=== PATIENT | male | born 1960 | race Caucasian/White ===

== ENCOUNTER 2019-10-28 12:55 | Outpatient (CLI) | payer BC, SELFPAY ==
--- NOTE | ~2019-10-28 | XR_ITS ---
EXAMINATION: XR lg joint inject/asp w image DATE: 10/28/2019 13:40 INDICATION: Right hip pain. TECHNIQUE: A time-out was performed to verify the patient's name, date of , and procedure to b e performed. The procedure including the risks, benefits, and alternatives was discussed with the pat ient. Risks discussed included bleeding and infection. The patient understood the risks and agreed to proceed. The skin overlying the right hip joint was prepped and draped in usual sterile fashion. A nesthetic was administered with 1% lidocaine subcutaneously. A 22 G needle was advanced under fluoro scopic guidance into the joint. Injection of 1 mL of Omnipaque 240 confirmed intra-articular positio n of the needle. Subsequently, injectate consisting of 5 mL 1% lidocaine and 2 mL 10 mg/mL Kenalog w as instilled. The needle was removed and the entry site was cleaned and dressed. There were no imme diate complications. Fluoroscopy exposure time was 0.1 minutes. The total number of images was 2. FINDINGS: Real-time fluoroscopy demonstrates the needle in the right hip joint. Patient's pain prior to procedure:6/10. Patient's pain following the procedure: 0/10. IMPRESSION: 1. Right hip joint injection of local anesthetic and steroid with decrease in the patient's presentin g pain. Reviewed, dictated and finalized at location A. IMPRESSION: 1. Right hip joint injection of local anesthetic and steroid with decrease in t he patient's presenting pain.
== END 2019-10-28 12:56 | disposition home or self-care (01) ==
PROVIDERS: PCP Family Medicine; Visit Provider Orthopaedic Surgery
DX: M25.551 Pain in right hip (principal)
CPT/HCPCS: 20610; 77002; J3301; Q9966

== ENCOUNTER 2020-02-05 00:56 | Outpatient (CLI) | payer BC, SELFPAY ==
[2020-02-05 19:18] LABS: SARS-CoV-2 RNA PCR Negative
== END 2020-02-05 00:57 | disposition home or self-care (01) ==
LOC: ANHCOVIDDT 00:56
PROVIDERS: PCP Family Medicine; Visit Provider Internal Medicine Gastroenterology
DX: Z01.812 Encounter for preprocedural laboratory examination (principal); Z20.828 Contact with and (suspected) exposure to other viral communicable diseases
CPT/HCPCS: 87635; C9803; U0003

== ENCOUNTER 2020-02-08 01:50 | Day surgery (SDC) | payer BC, SELFPAY ==
[2020-02-01 10:06] VITALS: BMI 30.7
[2020-02-08 06:52] VITALS: BP 131/80; PULSE 61; RESP 16; TEMP 36.3; O2SAT 99
[2020-02-08] MEDS: LACTATED RINGERS 1,000 ML 150 ML IV CONT (07:02)
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
[2020-02-08 08:29] VITALS: BP 100/64; PULSE 59; RESP 16; O2SAT 100
[2020-02-08 08:34] VITALS: BP 122/76; PULSE 62; RESP 18; O2SAT 100
[2020-02-08 08:50] VITALS: BP 115/76; PULSE 51; RESP 18; O2SAT 100
== END 2020-02-08 08:57 | disposition home or self-care (01) ==
PROVIDERS: PCP Family Medicine; Visit Provider Internal Medicine Gastroenterology
PROC: 0DJD8ZZ Inspection of Lower Intestinal Tract, Via Natural or Artificial Opening Endoscopic (ICD-10-PCS; CPT 45378; principal; 2020-02-08 08:00)
DX: K51.00 Ulcerative (chronic) pancolitis without complications (principal); K64.8 Other hemorrhoids; I10 Essential (primary) hypertension; K21.9 Gastro-esophageal reflux disease without esophagitis; Z87.891 Personal history of nicotine dependence
CPT/HCPCS: 45380; 88305; J2704; J7120

== ENCOUNTER 2021-01-16 10:54 | Outpatient (CLI) | payer BC, SELFPAY ==
--- NOTE | ~2021-01-16 | XR_ITS ---
EXAMINATION: XR lg joint inject/asp w image DATE: 01/16/2021 11:35 INDICATION: Unilateral primary osteoarthritis of the right hip TECHNIQUE: A time-out was performed to verify the patient's name, date of , and procedure to b e performed. The procedure including the risks, benefits, and alternatives was discussed with the pat ient. Risks discussed included bleeding and infection. The patient understood the risks and agreed to proceed. The skin overlying the right hip joint was prepped and draped in usual sterile fashion. A nesthetic was administered with 1% lidocaine subcutaneously. A 22 G needle was advanced under fluoro scopic guidance into the joint. Injection of 1 mL of Omnipaque 240 confirmed intra-articular positio n of the needle. Subsequently, injectate consisting of 7 mm a 5:2 mixture of 1% lidocaine: 10 mg/mL Kenalog for a total dosage of 20 mg Kenalog was instilled. Washout of contrast was seen confirming in tra-articular administration. The needle was removed and the entry site was cleaned and dressed. The re were no immediate complications. Fluoroscopy exposure time was 0.1 minutes. The total number of im ages was 2. Total DAP was 0.618 mGycm^2 FINDINGS: Real-time fluoroscopy demonstrates the needle in the right hip joint. Patient's pain prior to procedure:11/24. Patient's pain following the procedure: 09/24. IMPRESSION: 1. Right hip injection of local anesthetic and steroid with decrease in the patient's presenting pain . Reviewed, dictated and finalized at location A. IMPRESSION: 1. Right hip injection of local anesthetic and steroid with decrease in the pat ient's presenting pain.
== END 2021-01-16 10:55 | disposition home or self-care (01) ==
PROVIDERS: PCP Family Medicine; Visit Provider Orthopaedic Surgery
DX: M16.11 Unilateral primary osteoarthritis, right hip (principal)
CPT/HCPCS: 20610; 77002; J3301; Q9966

== ENCOUNTER 2021-10-31 08:48 | Emergency (ER) | payer BC, SELFPAY ==
--- NOTE | ~2021-10-31 | CT_ITS ---
EXAMINATION: CT abdomen pelvis wo con DATE: 10/31/2021 10:49 INDICATION: Right groin pain. TECHNIQUE: Computed tomography (CT) of the abdomen and pelvis was performed without intravenous contr ast. Automated exposure control and iterative reconstruction technique were employed. The dose-length product was 1170.68 mGy-cm. COMPARISON: Chest CT 02/05/2011 FINDINGS: The visualized portions of the lung bases demonstrate minimal atelectasis. No pleural effus ion. The heart size is normal. No pericardial effusion. The liver, gallbladder, spleen, pancreas, and adrenal glands are normal. There is a 3 mm stone in right kidney. There are cysts in the kidneys estephania suring up to 2.5 cm on the left. There is prominent fat in the inguinal canals that may be hernias. T here is diverticulosis of the colon without evidence of diverticulitis. The appendix is normal. There are no pathologically enlarged lymph nodes. There is no free intraperitoneal fluid. There is a total right hip arthroplasty. There are changes of anterior and posterior fusion procedures from L4 to S1. There is moderate lumbar spondylosis and mild thoracic spondylosis. IMPRESSION: 1. Prominent fat in the inguinal canals that may be small hernias. 2. Small nonobstructing right kidney stone. Reviewed, dictated and finalized at location B.
[2021-10-31 08:56] VITALS: BP 186/103; PULSE 77; RESP 18; TEMP 36.1; O2SAT 100
[2021-10-31 09:11] LABS: Basophils Absolute Auto 0.1 K/mm3 (0.0-0.1); Basophils Percent Auto 1.4 % (0.2-1.2); Eosinophils Absolute Auto 0.1 K/mm3 (0-0.3); Eosinophils Percent Auto 1.8 % (0-4.4); Hematocrit 43.7 % (42.0-52.0); Hemoglobin 14.9 g/dL (14.0-18.0); Immature Granulocyte Absolute 0.02 K/mm3 (0.00-0.031); Immature Granulocyte Percent A 0.4 % (0-0.5); Lymphocytes Absolute Auto 1.64 K/mm3 (0.9-3.2); Lymphocytes Percent Auto 29.3 % (18.3-44.2); Mean Corpuscular HGB Conc 34.1 g/dl (32-36); Mean Corpuscular Hemoglobin 30.9 pg (26-34); Mean Corpuscular Volume 90.7 fl (80-100); Mean Platelet Volume 9.5 fl (7.4-10.4); Monocytes Absolute Auto 0.5 K/mm3 (0.1-0.6); Neutrophils Absolute Auto 3.3 K/mm3 (1.3-6.7); Neutrophils Percent Auto 59.1 % (45.5-73.1); Platelet Count Result 236 k/mm3 (150-375); Red Blood Count 4.82 M/mm3 (4.6-6.20); Red Cell Distribution Width 13.7 % (11.5-14.5); White Blood Count 5.6 K/mm3 (4.5-10.0)
[2021-10-31 09:23] LABS: Alanine Aminotransferase 20 U/L (6-50); Albumin Level 4.6 g/dL (3.5-5.1); Alkaline Phosphatase 68 U/L (38-126); Anion Gap 6 mmol/L (8-16); Aspartate Amino Transferase 25 U/L (17-59); Bilirubin,Total 0.7 mg/dL (0.2-1.3); Blood Urea Nitrogen 13 mg/dL (9-20); Calcium 9.4 mg/dL (8.4-10.2); Carbon Dioxide 26 mmol/L (22-30); Chloride 104 mmol/L (98-107); Estimated CRCL calculation 99 ml/min; Estimated Glomerular Filt Rate > 60; Glucose 120 mg/dL (65-110); Potassium 4.7 mmol/L (3.4-5.0); Sodium 136 mmol/L (137-145)
[2021-10-31 10:20] LABS: Appearance Urine Clear (Clear); Bilirubin Urine Negative (Negative); Blood Urine Negative (Negative); Color Urine Yellow (Yellow); Glucose Urine UA Negative (Negative); Ketones Urine Negative (Negative); Leukocyte Esterase Ur Negative LEU/UL (Negative); Nitrate Urine Negative (Negative); Protein Urine Negative (Negative); Specific Grav Ur 1.025 (1.001-1.035); Urobilinogen Urine 0.2 mg/dL (<2.0)
[2021-10-31 10:21] LABS: Add Urine Microscopic? NO
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
== END 2021-10-31 11:40 | disposition home or self-care (01) ==
PROVIDERS: Emergency Provider Emergency Medicine; PCP Family Medicine
DX: K40.90 Unilateral inguinal hernia, without obstruction or gangrene, not specified as recurrent (principal); I10 Essential (primary) hypertension; F17.210 Nicotine dependence, cigarettes, uncomplicated
CPT/HCPCS: 36415; 74176; 80053; 81003; 85025; 99283

== ENCOUNTER 2023-01-31 00:30 | Day surgery (SDC) | payer BC, SELFPAY ==
[2023-01-16 13:35] VITALS: BMI 30.4
[2023-01-31 09:46] VITALS: BP 145/90; PULSE 62; RESP 16; TEMP 36.2; O2SAT 99; BMI 29.5
[2023-01-31] MEDS: LACTATED RINGERS 1,000 ML 150 ML IV CONT (09:58)
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
[2023-01-31 10:26] VITALS: BP 101/57; PULSE 71; RESP 20; O2SAT 95
[2023-01-31 10:36] VITALS: BP 110/69; PULSE 63; RESP 21; O2SAT 99
[2023-01-31 10:46] VITALS: BP 121/83; PULSE 71; RESP 20; O2SAT 99
== END 2023-01-31 10:58 | disposition home or self-care (01) ==
PROVIDERS: PCP Family Medicine; Visit Provider Internal Medicine Gastroenterology
PROC: 0DJD8ZZ Inspection of Lower Intestinal Tract, Via Natural or Artificial Opening Endoscopic (ICD-10-PCS; CPT 45378; principal; 2023-01-31 11:00)
DX: Z12.11 Encounter for screening for malignant neoplasm of colon (principal); D12.5 Benign neoplasm of sigmoid colon; K64.8 Other hemorrhoids; K51.90 Ulcerative colitis, unspecified, without complications; I10 Essential (primary) hypertension; Z87.891 Personal history of nicotine dependence
CPT/HCPCS: 45385; 45380; 88305; J2704; J7120

== ENCOUNTER 2024-01-01 00:24 | Day surgery (SDC) | payer BC, SELFPAY ==
[2024-01-01 14:09] VITALS: BP 147/85; PULSE 67; RESP 18; TEMP 35.9; O2SAT 98; BMI 32.3
[2024-01-01] MEDS: LACTATED RINGERS 1,000 ML 150 ML IV CONT (14:17)
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
[2024-01-01 15:35] VITALS: BP 123/69; PULSE 70; RESP 22; O2SAT 99
[2024-01-01 15:45] VITALS: BP 126/78; PULSE 66; RESP 19; O2SAT 99
[2024-01-01 15:55] VITALS: BP 131/76; PULSE 65; RESP 18; O2SAT 98
== END 2024-01-01 16:01 | disposition home or self-care (01) ==
PROVIDERS: PCP Family Medicine; Referring Provider Nurse Practitioner Family; Visit Provider Internal Medicine Gastroenterology
PROC: 0DJ08ZZ Inspection of Upper Intestinal Tract, Via Natural or Artificial Opening Endoscopic (ICD-10-PCS; CPT 43235; principal; 2024-01-01 15:00)
DX: K21.00 Gastro-esophageal reflux disease with esophagitis, without bleeding (principal); K22.70 Barrett's esophagus without dysplasia; K22.2 Esophageal obstruction; K44.9 Diaphragmatic hernia without obstruction or gangrene; K31.89 Other diseases of stomach and duodenum; I10 Essential (primary) hypertension; M16.11 Unilateral primary osteoarthritis, right hip; M17.11 Unilateral primary osteoarthritis, right knee; E66.9 Obesity, unspecified; Z68.32 Body mass index [BMI] 32.0-32.9, adult; Z79.1 Long term (current) use of non-steroidal anti-inflammatories (NSAID); Z98.890 Other specified postprocedural states; Z98.1 Arthrodesis status; Z87.891 Personal history of nicotine dependence; Z86.010 Personal history of colon polyps; Z80.9 Family history of malignant neoplasm, unspecified
CPT/HCPCS: 43249; 88305; C1726; J2704; J7120

== ENCOUNTER 2024-05-27 01:27 | Day surgery (SDC) | payer BC, SELFPAY ==
[2024-04-23 10:51] VITALS: BMI 33.0
[2024-05-13 12:54] VITALS: BMI 33.0
[2024-05-27 13:10] VITALS: BP 154/100; PULSE 78; RESP 14; TEMP 36; O2SAT 99
[2024-05-27] MEDS: LACTATED RINGERS 1,000 ML 150 ML IV CONT (13:21)
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
[2024-05-27 14:24] VITALS: BP 131/84; PULSE 76; RESP 25; O2SAT 98
[2024-05-27 14:34] VITALS: BP 126/73; PULSE 65; RESP 20; O2SAT 100
[2024-05-27 14:44] VITALS: BP 141/77; PULSE 74; RESP 24; O2SAT 100
== END 2024-05-27 14:52 | disposition home or self-care (01) ==
PROVIDERS: PCP Family Medicine; Visit Provider Internal Medicine Gastroenterology
PROC: 0DJD8ZZ Inspection of Lower Intestinal Tract, Via Natural or Artificial Opening Endoscopic (ICD-10-PCS; CPT 45378; principal; 2024-05-27 14:00)
DX: Z09 Encounter for follow-up examination after completed treatment for conditions other than malignant neoplasm (principal); K51.90 Ulcerative colitis, unspecified, without complications; K63.5 Polyp of colon; D12.8 Benign neoplasm of rectum; K64.8 Other hemorrhoids; K57.30 Diverticulosis of large intestine without perforation or abscess without bleeding; K22.2 Esophageal obstruction; I10 Essential (primary) hypertension; M17.11 Unilateral primary osteoarthritis, right knee; M16.11 Unilateral primary osteoarthritis, right hip; F12.90 Cannabis use, unspecified, uncomplicated; E66.9 Obesity, unspecified; Z68.32 Body mass index [BMI] 32.0-32.9, adult; Z79.1 Long term (current) use of non-steroidal anti-inflammatories (NSAID); Z98.890 Other specified postprocedural states; Z98.1 Arthrodesis status; Z86.0100 Personal history of colon polyps, unspecified; Z87.891 Personal history of nicotine dependence; Z87.19 Personal history of other diseases of the digestive system; Z80.9 Family history of malignant neoplasm, unspecified
CPT/HCPCS: 45385; 45380; 88305; J2003; J2704; J7120

== ENCOUNTER 2025-01-20 03:57 | Day surgery (SDC) | payer MEDICARE, SELFPAY ==
[2025-01-13 12:03] VITALS: BMI 34.3
--- OUTSIDE RECORDS SUMMARY | 2025-01-20 04:26 | XMS_ITS | Clinical Summary ---
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
--- OUTSIDE RECORDS SUMMARY | 2025-01-20 04:26 | XMS_ITS | Clinical Summary ---
Author Organization [facility] Address [address] [place] [address] Care Team Providers Care Rn Field Case Manager Name Role Phone Glen Daniels MD Primary Care Provider [phone] Source Comments [facility],non-owned Affiliates and Associated Physician Practices is amultiple site organization consisting of ambulatory clinics and hospital sitesin [place], [place], [place] and [place]. This disclosure is being madepursuant to the Care Everywhere program and may not contain all information available regarding this patient. Last updated 18.[facility] Allergies No known active allergies Medications * Be aware that medications may not be up to date on this document. Alwaysverify current medications with the patient. influenza quadrivalent vac (FLUZONE QUAD) 0.5 ML injection 8 Active Calcium Citrate-Vitamin D (CITRACAL MAXIMUM PO) Take 1 tablet by mouth once daily Active sulfaSALAzine (AZULFIDINE) 500 MG tablet Take 500 mg by mouth 4 times daily Active sildenafil (VIAGRA) 50 MG tablet Take 50 mg by mouth once as needed Active Probiotic Product (PROBIOTIC ADVANCED PO) Active omeprazole (PRILOSEC) 20 MG capsule Take 20 mg by mouth daily before breakfast Active meloxicam (MOBIC) 15 MG tablet Take 1 tablet by mouth once daily 30 tablet 4 8 Active Additional Information Patient not taking.Reported on 06/06/2018 Active Problems Problem Noted Date Diagnosed Date 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 (AF LURIA, FLUZONE TRIVALENT; 6MO+) (IIV3) 03/17/2013 Family History Medical History Relation Name Comments Arthritis Father s/p hip/knee ar throplasty Gout Father Diabetes Maternal Grandmother Cancer Maternal Uncle 3 uncles Status: Other Hypertension Mother COPD - Chronic Obstructive Pulmonary Disease Neg Hx Heart Disease Neg Hx Lupus Neg Hx Psoriasis Neg Hx Stillbirth/Multiple Miscarriages/Infertility Neg Hx Thyroid Disease Neg Hx Ulcerative Colitis Neg Hx Relation Name Status Comments Father Maternal Grandmother Maternal Uncle 3 uncles Mother Social History Tobacco Use Types Packs/Day Years Used Date Smoking Tobacco: Former Cigarettes Q uit: 04/11/1990 Smokeless Tobacco: Never Alcohol Use Standard Drinks/Week Comments Yes 5 (1 standard drink = 0.6 oz pur e alcohol) 1-2 drinks daily Sex and Gender Information Value Date Recorded Sex Assigned at Not on file Legal Sex Male 5:42 PM CHEMIST ASSISTANT Gender Identity Not on file Sexual Orientation Not on file Occupation Industry Job Start Date Job End Date retired Not on file Not on file Not on file Last Filed Vital Signs Vital Sign Reading Time Taken Comments Blood Pressure 146/86 06/06/2018 12:35 PM CHEMIST ASSISTANT Pulse 92 06/06/2018 12:35 PM CHEMIST ASSISTANT Temperature 36.8 C (98.3 F) 06/06/2018 12:35 PM CHEMIST ASSISTANT Respiratory Rate 16 06/24/2013 10:31 AM CHEMIST ASSISTANT Oxygen Saturation 99% 06/22/2015 9:07 AM CHEMIST ASSISTANT Inhaled Oxygen Concentration - - Weight 108.9 kg (240 lb) 06/06/2018 12:35 PM CHEMIST ASSISTANT Height 186.7 cm (6' 1.5) 06/06/2018 12:35 PM CS T Body Mass Index 31.23 06/06/2018 12:35 PM CHEMIST ASSISTANT Plan of Treatment Health Maintenance Due Date Last Done Comments COLOGUARD (AGES 45-75) - COL ON CA SCREENING 1959 COLON MONITORING 1959 COLONOSCOPY - COLON CA SCREENING 1959 CT COLONOGRAPHY - COLON CA SCREENING 1959 Colorectal Cancer Screening 1959 FIT - COLON CA SCREENING 1959 FLEX SIG - COLON CA SCREENING 1959 LIPID TESTING 1959 HIV SCREENING 11/24/1974 DTAP/TDAP/TD VACCINES (1 - Tdap) 11/24/1978 PNEUMOCOCCAL VACCINE 50+ (1 of 1 - PCV) 11/24/2009 ZOSTER VACCINE (1 of 2) 11/24/2009 SCREENING FOR DIABETES 04/30/2021 04/30/2018 COVID-19 VACCINE (1 - 2023-2 5 season) 2024 DEPRESSION SCREENING 06/17/2024 AAA SCREENING 11/24/2024 INFLUENZA VACCINE (#1) 2025 03/17/2013 Respiratory Syncytial Virus (RSV) Vaccine Pt: or over 60 yrs (1 - 1-dose 75+ series) 11/24/2034 HEPATITIS C SCREENING Completed 04/30/2018 HEPATITIS B VACCINE Aged Out No longe r eligible based on patient's age to complete this topic HIB VACCINE Aged Out No longer eligi ble based on patient's age to complete this topic HPV VACCINE Aged Out No longer eligi ble based on patient's age to complete this topic MENINGOCOCCAL (Group B) VACC INE SHARED DECISION-MAKING Aged Out No longer eligibl e based on patient's age to complete this topic MENINGOCOCCAL GROUPS A/C/Y/W VACCINE Aged Out No longer eligible b ased on patient's age to complete this topic Procedures Procedure Name Priority Date/Time Associated Diagnosis Comments COMPREHENSIVE METABOLIC PANEL Routine 04/30/2018 3:13 PM CHEMIST ASSISTANT Arthralgia, unspecified joint Ulcerative colitis without complications, unspecified location HEPATITIS C ANTIBODY Routine 04/30/2018 3:13 PM CHEMIST ASSISTANT Arthralgia, unspecified joint Ulcerative colitis without complications, unspecified location from Last 3 Months or Most Recently Relevant to Health Maintenance Results * COMPREHENSIVE METABOLIC PANEL (04/30/2018 3:13 PM CHEMIST ASSISTANT) BUN 18 7 - 26 mg/dL 04/30/2018 4:35 PM CHEMIST ASSISTANT [facility] Creatinine 1.2 0.6 - 1.2 mg/dL 04/30/2018 4:35 PM [facility] Sodium 140 136 - 145 mmol/L 04/30/2018 4:35 PM [facility] Potassium 3.8 3.5 - 4.5 mmol/L 04/30/2018 4:35 PM [facility] Chloride 102 98 - 107 mmol/L 04/30/2018 4:35 PM [facility] CO2 28 22 - 29 mmol/L 04/30/2018 4:35 PM [facility] Glucose 98 70 - 115 mg/dL 04/30/2018 4:35 PM [facility] Calcium 9.9 8.4 - 10.2 mg/dL 04/30/2018 4:35 PM [facility] Protein Total 8.1 6.0 - 8.3 g/dL 04/30/2018 4:35 PM [facility] Albumin 4.2 3.4 - 5.0 g/dL 04/30/2018 4:35 PM [facility] Bilirubin Total 0.5 0.2 - 1.2 mg/dL 04/30/2018 4:35 PM [facility] Alkaline Phosphatase 61 40 - 150 Units/L 04/30/2018 4:35 PM [facility] ALT 17 0 - 55 Units/L 04/30/2018 4:35 PM [facility] AST 20 5 - 34 Units/L 04/30/2018 4:35 PM [facility] Anion Gap 14 8 - 18 04/30/2018 4:35 PM [facility] BUN/Creatinine Ratio 15 7 - 23 04/30/2018 4:35 PM [facility] Osmolality Calculated 292 270 - 300 mOsm/kg 04/30/2018 4:35 PM [facility] Albumin/Globulin Ratio 1.1 1.1 - 2.3 04/30/2018 4:35 PM [facility] eGFR >60 >60 mL/min/1.7 3 m2 04/30/2018 4:35 PM [facility] Blood BLOOD SPECIMEN / Unknown Lab Venipuncture / Unknown 04/30/2018 3:13 PM CHEMIST ASSISTANT 04/30/2018 3:41 PM CHEMIST ASSISTANT us Leighann Valentine MD LAB - CHEMISTRY ORDERABLE S Final Result [address] [phone] * HEPATITIS C ANTIBODY (04/30/2018 3:13 PM CHEMIST ASSISTANT) Hepatitis C Antibody Non-react dong Non-reac tive 04/30/2018 5:32 PM CHEMIST ASSISTANT [facility] Comment: Hepatitis C Antibody screen indicates no serologic evidence of past or current infection with Hepatitis C Virus. Patients with unexplained liver disease who are immunocompromised or suspected of having acute Hepatitis C infection may benefit from Nucleic Acid Test (SONAL) for Hepatitis C Viral RNA to confirm Hepatitis C status. Blood BLOOD SPECIMEN / Unknown Lab Venipuncture / Unknown 04/30/2018 3:13 PM CHEMIST ASSISTANT 04/30/2018 3:42 PM CHEMIST ASSISTANT us Leighann Valentine MD LAB - CHEMISTRY ORDERABLE S Final Result Performing Organization Address City/[facility]/ZIP Co de Phone Number [address] [phone] from Last 3 Months or Most Recently Relevant to Health Maintenance Insurance [facility] * Guarantor: JUAN JOSÉ JORDAN Account Type Relation to Patient Date of Phone Billing Address Personal/Family [address] [place] [address] * Guarantor: JUAN JOSÉ JORDAN Account Type Relation to Patient Date of Phone Billing Address Personal/Family [address] [place] [address] * Guarantor: JUAN JOSÉ JORDAN Account Type Relation to Patient Date of Phone Billing Address Personal/Family [address] [place] [address] * Guarantor: JUAN JOSÉ JORDAN Account Type Relation to Patient Date of Phone Billing Address Personal/Family Spouse Care Teams Rn Field Case Manager Relationship Specialty Start Date End Date Glen Daniels MD [address] [place] [address] PCP - General 06/22/15
--- OUTSIDE RECORDS SUMMARY | 2025-01-20 04:26 | XMS_ITS | Referral Summary ---
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
[2025-01-20 06:54] VITALS: BP 164/113; PULSE 79; RESP 18; TEMP 36.3; O2SAT 99; BMI 34.7
[2025-01-20] MEDS: LACTATED RINGERS 1,000 ML 150 ML IV CONT (06:57)
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
--- NOTE | 2025-01-20 07:30 | SUR.PREOP ---
pts initial bp reading on admit was 164//113, pt did not take bp med this morning, states his meds were recently changed. after admit and iv started, took bp again. bp 144/80.
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
--- NOTE | 2025-01-20 07:47 | S_PTH ---
PATIENT: Juan José Ruiz LOC: [facility]#:[id number] AGE/SX: 64/M ROOM: RE01/20/[address]: Nash Phelps MD : 1960 BED: DIS: 01/20/2025 SPEC #: [id number] RECD: 01/20/25 09:05 STATUS: MARK REJimmy #: [id number] CHINO: 01/20/25 07:[address]: Nash Phelps DEPT: [facility] Surgical RECD BY: Josephine Neil ENTERED: 01/20/25 09:05 SP TYPE: Surgical OTHR DR: Glen Daniels MD Tissues: A - Esophageal Biopsy Procedures: Hematoxylin and Eosin Stain Gross and Microscopic Level 4
[2025-01-20 07:52] VITALS: BP 105/71; PULSE 94; RESP 20; O2SAT 98
[2025-01-20 08:02] VITALS: BP 143/80; PULSE 80; RESP 20; O2SAT 95
[2025-01-20 08:12] VITALS: BP 142/97; PULSE 66; RESP 22; O2SAT 100
== END 2025-01-20 08:24 | disposition home or self-care (01) ==
PROVIDERS: PCP Family Medicine; Referring Provider Internal Medicine Gastroenterology; Visit Provider Internal Medicine Gastroenterology
PROC: 0DJ08ZZ Inspection of Upper Intestinal Tract, Via Natural or Artificial Opening Endoscopic (ICD-10-PCS; CPT 43239; principal; 2025-01-20 07:45)
DX: K21.00 Gastro-esophageal reflux disease with esophagitis, without bleeding (principal); K22.70 Barrett's esophagus without dysplasia; K44.9 Diaphragmatic hernia without obstruction or gangrene; I10 Essential (primary) hypertension; M17.11 Unilateral primary osteoarthritis, right knee; M16.11 Unilateral primary osteoarthritis, right hip; F12.90 Cannabis use, unspecified, uncomplicated; Z79.1 Long term (current) use of non-steroidal anti-inflammatories (NSAID); E66.9 Obesity, unspecified; Z68.34 Body mass index [BMI] 34.0-34.9, adult; Z98.890 Other specified postprocedural states; Z98.1 Arthrodesis status; Z87.891 Personal history of nicotine dependence; Z86.0100 Personal history of colon polyps, unspecified; Z87.19 Personal history of other diseases of the digestive system; Z80.9 Family history of malignant neoplasm, unspecified
CPT/HCPCS: 43239; 88305; J2003; J2704; J7120